=== PATIENT | male | born 1965 | race Caucasian/White ===

== ENCOUNTER 2021-05-27 10:04 | Day surgery (SDC) | payer MEDICAID ==
[~2021-05-27] VITALS: Ht 175.3 cm; Wt 86.5 kg
[2021-05-27] MEDS ORDERED: PROPOFOL 50 ML ONE (10:32)
[2021-05-27] MEDS ORDERED: MIDAZOLAM 1 MG/ML, 2ML ONE (10:32)
[2021-05-27] MEDS ORDERED: LACTATED RINGERS 1,000 ML IV SCH (11:00)
[2021-05-27] MEDS ORDERED: CHLORHEXIDINE 15 ML UDC PO ONE (11:00)
[2021-05-27] MEDS ORDERED: OXYC1TAB14 PO (11:07)
[2021-05-27] MEDS ORDERED: SENN-190 PO (11:07)
[2021-05-27] MEDS ORDERED: MULT-717 PO (11:07)
[2021-05-27] MEDS ORDERED: POLY17PO5 PO (11:07)
[2021-05-27] MEDS ORDERED: BACL20TA PO (11:07)
[2021-05-27] MEDS ORDERED: ATOR40TA78 PO (11:07)
[2021-05-27] MEDS ORDERED: DOCU-131 PO (11:07)
[2021-05-27] MEDS ORDERED: CHOL10003 PO (11:07)
[2021-05-27] MEDS ORDERED: PSYL0.5215 PO (11:07)
[2021-05-27] MEDS ORDERED: TAMS-11 PO (11:07)
[2021-05-27 11:28] VITALS: BP 135/90
[2021-05-27] MEDS ORDERED: PLEASE ENTER ALLERGIES MC SCH (11:30)
[2021-05-27] MEDS ORDERED: FENTANYL PF 100 MCG/2ML IV PRN (12:00)
[2021-05-27] MEDS ORDERED: AMPICILLIN/SULBACTAM 3 GM in SODIUM CHLORIDE 0.9% 100 ML IV ONE (13:00)
== END 2021-05-27 14:00 | disposition home or self-care (01) ==
LOC: OUT 10:04
PROVIDERS: ATTEND Internal Medicine Geriatric Medicine
DX: K86.2 Cyst of pancreas (principal); G80.8 Other cerebral palsy; K21.9 Gastro-esophageal reflux disease without esophagitis; M10.9 Gout, unspecified; F12.90 Cannabis use, unspecified, uncomplicated; Z72.89 Other problems related to lifestyle; Z79.899 Other long term (current) drug therapy; Z20.822 Contact with and (suspected) exposure to COVID-19; Z98.890 Other specified postprocedural states; Z79.1 Long term (current) use of non-steroidal anti-inflammatories (NSAID)
CPT/HCPCS: 43242; 87635; 88172; 88173; 88307; J0295; J2250; J2704; J7120